=== PATIENT | male | born 1980 | race Caucasian/White ===

== ENCOUNTER 2024-12-04 10:06 | Emergency (ER) | payer BC ==
[2024-12-04] MEDS ORDERED: Sodium Chloride 0.9% 10 ML Syringe FLUSH PRN (10:14)
[2024-12-04] MEDS: Ketorolac 30 MG/ML SDV IVPUSH ONE (10:36)
[2024-12-04 10:39] LABS: BASOPHILS ABSOLUTE AUTO 0.1 K/mm3 (0.0-0.2); BASOPHILS PERCENT AUTO 0.8 % (0.0-1.0); EOSINOPHILS ABSOLUTE AUTO 0.5 K/mm3 (0.0-0.4); EOSINOPHILS PERCENT AUTO 3.7 % (0.0-6.0); IMMATURE GRAN ABSOLUTE AUTO 0.04 K/mm3 (0.00-0.05); IMMATURE GRAN PERCENT AUTO 0.3 % (0.0-0.4); LYMPHOCYTES ABSOLUTE AUTO 2.4 K/mm3 (1.0-4.8); LYMPHOCYTES PERCENT AUTO 19.3 % (24.0-44.0); MEAN PLATELET VOLUME 10.4 fl (9.4-12.4); MONOCYTES ABSOLUTE AUTO 0.8 K/mm3 (0.0-0.8); MONOCYTES PERCENT AUTO 6.6 % (0.0-8.0); NEUTROPHILS ABSOLUTE AUTO 8.8 K/mm3 (1.8-7.7); NEUTROPHILS PERCENT AUTO 69.3 % (41.0-71.0); NRBC ABSOLUTE 0.00 (0.00-0.02); NRBC PERCENT 0.0 % (0.0-0.2); PLATELET COUNT,PLT 230 K/mm3 (150-400); RED BLOOD CELL COUNT 5.88 M/mm3 (4.52-5.90); WHITE BLOOD CELL COUNT,WBC 12.62 K/mm3 (3.9-11.3)
[2024-12-04 11:01] LABS: A/G RATIO 1.3 (1-2); ALANINE AMINOTRANSFERASE,ALT 33.0 U/L (16-63); ASPARTATE AMNIOTRANSFERASE,AST 25.0 U/L (15-37); BILIRUBIN TOTAL 1.0 mg/dL (0.2-1.0); BLOOD UREA NITROGEN,BUN 16.0 mg/dL (7-18); CARBON DIOXIDE,CO2 22.0 mEq/L (21-32); CHLORIDE,CL 102.0 mEq/L (98-107); CHOLESTEROL HDL 50.0 mg/dL (40-59); CHOLESTEROL LDL DIRECT 69.0 mg/dL (<100); CHOLESTEROL TOTAL 133.0 mg/dL (<200); CREATININE 0.8 mg/dL (0.7-1.3); EST CRCL DRUG DOSING (CG) 115.19 mL/min; ESTIMATED GFR 113.0 mL/min (>60); GLUCOSE RANDOM 124.0 mg/dL (70-99); POTASSIUM,K 4.1 mEq/L (3.5-5.1); PROTEIN TOTAL,TP 7.5 g/dl (6.4-8.2); SODIUM,NA 139.0 mEq/L (136-145)
[2024-12-04 12:51] LABS: APPEARANCE,URINE CLEAR (Clear); GLUCOSE,URINE 2+ (Negative); OCCULT BLOOD,URINE NEGATIVE (Negative)
[2024-12-04] MEDS: Iopamidol 612 MG/ML 100 ML Bottle IVPUSH ONE (12:53)
[2024-12-04] MEDS: Sodium Chloride 0.9% 10 ML Syringe FLUSH ONE (12:53)
[2024-12-04 13:00] LABS: EPITHELIAL CELLS,URINE 0-5 /hpf (0-5)
[2024-12-04] MEDS: methylPREDNISolone Sodium Succinate 125 MG/2 ML SDV IVPUSH ONE (16:04)
== END 2024-12-04 16:15 | disposition home or self-care (01) ==
LOC: JD.ED 10:06
DX: M54.50 Low back pain, unspecified (principal)
CPT/HCPCS: 36415; 72128; 72131; 74176; 74177; 80053; 80061; 81001; 83036; 83690; 85025; 86140; 96374; 96375; 96376; 99284; J1885; J2919; J3360; Q9967; J1171